=== PATIENT | male | born 1940 | race Caucasian/White ===

== ENCOUNTER → 2025-01-21 10:58 | Outpatient (REF) | payer OTHER, SELFPAY | LOC: RAD 10:58 | PROVIDERS: ATTENDING PHYSICIAN Urology; FAMILY PHYSICIAN Family Medicine | DX: R97.20 Elevated prostate specific antigen [PSA] (principal) | CPT/HCPCS: 74178; Q9967 ==

== ENCOUNTER 2025-02-19 06:15 | Day surgery (SDC) | payer OTHER, SELFPAY ==
[2025-01-25 14:05] VITALS: BMI 26.0
[2025-02-19] VITALS (14 sets, daily range): BP systolic 130–200; BP diastolic 59–87; BMI 26.0; BMI 25.2
[2025-02-19] MEDS: SUBLIMAZE 25 MCG IV ×2 (18:17→18:39)
[2025-02-19] MEDS: APRESOLINE 5 MG IV (18:42)
[2025-02-19] MEDS: DETROL LA 4 MG PO (18:52)
[2025-02-19] MEDS: FLOMAX 0.4 MG PO (21:01)
[2025-02-19] MEDS: PROSCAR 5 MG PO (21:01)
--- NOTE | 2025-02-19 22:13 | PTCARENOTE ---
Pt arrived to from PACU via bed @ 1999. Pt AAOx3, IONE. CBI running per order. 3-way silvestre draining pink-tinged clear urine. Pt with no complaints of pain. Admission assessment complete. Pt oriented to room, call romeo within reach, bed locked
and in lowest position. Care ongoing.
[2025-02-20 03:00] VITALS: BP 124/64
--- NOTE | 2025-02-20 06:00 | PTCARENOTE ---
CBI clamped at 0600 per order. Urine clear and w/o clots. Pt tolerating catheter. Care ongoing.
[2025-02-20 06:11] LABS: Hematocrit 35.5 % (39.0-52.0); Hemoglobin 12.1 g/dL (13.0-18.0); Mean Corp Hgb Conc. 34.1 g/dL (33.0-37.0); Mean Corpuscular Volume 89.0 fL (80.0-94.0); Platelet Count 296 10^3/uL (130-400); Red Cell Dist. Width 13.3 % (11.5-14.5)
[2025-02-20 06:39] LABS: Blood Urea Nitrogen 21 mg/dl (9-20); Calcium 8.8 mg/dl (8.4-10.2); Carbon Dioxide 26 mmol/L (22-30); Chloride 104 mmol/L (98-107); Estimated Creatinine Clearance 54 ml/min; Glucose 110 mg/dl (70-99); Potassium 5.0 mmol/L (3.5-5.1); Sodium 135 mmol/L (135-145); eGFR > 60.00
--- NOTE | 2025-02-20 07:05 | W.PN.URO.CBU ---
Today's Communication / Plan
-
resume CBI
Assessment / Plan
-
s/p TURBT 02/[address] costa- silvestre difficult to place post op
urine watson off cbi
plan to restart irrigation we re-attempt at wean tomorrow
ultimate plan is for discharge with silvestre and outpt follow up
Diagnosis
-
Date of Service: February 20, 2025
-
Patient Diagnosis:
bladder cancer
BPH
Post Op Day:
TURBT
difficult silvestre
Subjective
-
pt comfortable
cbi was stopped about one hour ago- urine watson colored
Objective
-
Vital Signs
Temp Pulse Resp BP Pulse Ox
98.7 F 70 16 124/64 95
02/20/25 03:00 02/20/25 03:00 02/20/25 03:00 02/20/25 03:00 02/20/25 03:00
Intake and Output
02/19/25 02/20/25 02/21/25
06:59 06:59 06:59
Intake Total 1520 / 1520
Output Total -2950 / -2950
Balance 4470 / 4470
Intake:
Oral fluids 1320 / 1320
IV fluids (Total) 200 / 200
Normosal 200 / 200
Output:
True Urine Output from CBI -2950 / -2950
Laboratory Results
02/20/25 05:02
02/20/25 05:02
Review of Systems
-
Constitutional: No Symptoms
Respiratory: No Symptoms
Cardiac: No Symptoms
Abdomen/GI: No Symptoms
Physical Exam
-
General - no acute distress
Abdomen - soft, non-tender
Genitalia - [address] way [address]
[2025-02-20 07:10] VITALS: BP 116/69
[2025-02-20] MEDS: PROTONIX 40 MG PO (08:02)
[2025-02-20 11:29] VITALS: BP 124/54
--- NOTE | 2025-02-20 13:13 | CM ---
Initial assessment was completed with pt at bedside.
Pt is an 84yr old admitted for an outpt TURBT procedure 02/19/25.
At baseline, pt lives with his in a 2 level home with 1ste. There is a 1st floor 1/2Bath and 2nd floor full Bath and bedroom.
Prior, Pt is indep and driving. Pt does not have dme and has no prior use of VN/SNF.
Pt drove himself to the hospital, and plans to drive himself home.
Pt does have silvestre, but declines VN at this time.
PCP Martin Salter
[facility]
PLAN; Pt plans to dc with no anticipated needs.
[2025-02-20 15:05] VITALS: BP 113/49
[2025-02-20 19:00] VITALS: BP 113/56
[2025-02-20] MEDS: FLOMAX 0.4 MG PO (20:38)
[2025-02-20] MEDS: PROSCAR 5 MG PO (20:38)
[2025-02-20 23:03] VITALS: BP 118/56
--- NOTE | 2025-02-21 00:01 | PTCARENOTE ---
CBI clamped at 0000 per order. Care ongoing.
[2025-02-21 07:00] VITALS: BP 121/51
--- NOTE | 2025-02-21 07:30 | W.PN.UPDATE ---
Update Note
Progress Note Update
pt stable
cbi off since midnight- urine clear
reviewed instructions- for discharge today with konrda
[2025-02-21] MEDS: PROTONIX 40 MG PO (08:47)
--- NOTE | 2025-02-21 11:26 | W.DS.TRANS ---
DC Summary - [employer]
-
Discharge Instructions:
Sleep Apnea Risk Low
Discharge Diagnosis/Procedures Bladder tumor
Transurethral resection of bladder tumor
Diet No restrictions
Activity No strenuous activity
Additional Activity avoid lifting/straining and strenuous activity
for 2 weeks
Driving Restrictions As prior to admission
Bathing Restrictions OK to Shower
Instructions:
Stand-Alone Forms:
Changes to Home Medications: No
Discharge Medications:
DC Medications w/original date entered in [facility]
finasteride 5 mg tablet 5 mg PO HS 07/04/17
glucosamine HCl 500 mg-msm 83 mg-chondroitin 400 mg tablet 1 ea PO BID 07/04/17
omeprazole 20 mg capsule,delayed release 20 mg PO DAILY 07/04/17
tamsulosin 0.4 mg capsule 0.4 mg PO HS 07/04/17
multivitamin 1 tab PO DAILY 01/28/25
Home Medication Changes
Pending Results: Yes
Additional Pending Results:
bladder pathology
Total time spent discharging patient (in min): 10 minutes
[2025-02-21 12:53] VITALS: BP 118/56
== END 2025-02-21 13:18 | disposition home or self-care (01) ==
LOC: SDS 06:15
PROVIDERS: ATTENDING PHYSICIAN Urology; FAMILY PHYSICIAN Family Medicine
DX: C67.4 Malignant neoplasm of posterior wall of bladder (principal); N40.0 Benign prostatic hyperplasia without lower urinary tract symptoms; N13.8 Other obstructive and reflux uropathy; N32.89 Other specified disorders of bladder; N32.3 Diverticulum of bladder
CPT/HCPCS: 52235; 36415; 80048; 85027; 88307; 93005; A9589; C1769; J9201

== ENCOUNTER 2025-04-08 06:23 | Day surgery (SDC) | payer OTHER, SELFPAY ==
[2025-04-08] VITALS (9 sets, daily range): BP systolic 155–184; BP diastolic 67–141; BMI 23.9
[2025-04-08] MEDS: NORMOSOL-R/PLASMALYTE-A 1000 IV (09:28)
== END 2025-04-08 17:07 | disposition home or self-care (01) ==
LOC: SDS 06:23
PROVIDERS: ATTENDING PHYSICIAN Urology
DX: N32.3 Diverticulum of bladder (principal); N30.90 Cystitis, unspecified without hematuria
CPT/HCPCS: 52235; 88307; C1713